=== PATIENT | female | born 1965 | race Caucasian/White ===

== ENCOUNTER → 2024-03-25 07:04 | Outpatient (CLI) | payer OTHER, SELFPAY ==
--- NOTE | 2024-03-25 | DI.MRI.S_ITS ---
PROCEDURE: MR LUMBAR SPINE WO CON INDICATIONS: SPONDYLOSIS W/O MYELOPATHY OR RADICULOPATHY TECHNIQUE: Noncontrast sagittal T1 spin echo and T2 fast echo, sagittal STIR, and T2 fast spin echo through the lumbar spine. In cases with scoliosis, additional coronal T2 fast spin echo may be performed. COMPARISON: None. FINDINGS: Image quality: Excellent. Alignment and Curvature: There is grade 1 anterolisthesis of in mm L5 on S1. Bone Marrow: Marrow is of normal overall signal. No acute vertebral body compression fractures. Spinal Cord: Conus medullaris terminates at the L1 level. Visualized cord demonstrates normal signal and size. Paraspinous Soft Tissues: No paravertebral masses. Discs: Udan-[id number]-rivygyyx desiccation at L5-S1. T12-L1: No disc bulge, spinal stenosis or foraminal narrowing. L1-L2: No disc bulge, spinal stenosis or foraminal narrowing. L2-L3: No disc bulge, spinal stenosis or foraminal narrowing. L3-L4: Trace disc bulge without spinal stenosis. Mild left minimal right foraminal narrowing with ligamentum flavum hypertrophy. L4-L5: Disc bulge without spinal stenosis. No foraminal narrowing. L5-S1: No disc bulge or spinal stenosis. Severe bilateral foraminal narrowing. No nerve root compression. Pars defect is present. IMPRESSION: Grade 1 anterolisthesis of L5-S1 with bilateral pars defect. Bilateral severe foraminal narrowing at L5-S1 secondary to anterolisthesis. Dictated by: Poonam Spivey M.D. on 03/26/2024 at 17:41 Approved by: Poonam Spivey M.D. on 03/26/2024 at 17:43
== END ==
PROVIDERS: Referring Provider Acupuncturist; Visit Provider Acupuncturist
DX: M47.816 Spondylosis without myelopathy or radiculopathy, lumbar region (principal); M43.17 Spondylolisthesis, lumbosacral region; M48.07 Spinal stenosis, lumbosacral region
CPT/HCPCS: 72148

== ENCOUNTER → 2024-08-01 18:09 | Outpatient (CLI) | payer OTHER, SELFPAY ==
--- NOTE | 2024-08-01 18:12 | DI.MRI.S_ITS ---
PROCEDURE: MR KNEE RT WO CON INDICATIONS: MEDIAL KNEE PAIN ACUTE ON CHRONIC/LIG INJURY? TECHNIQUE: Noncontrast sagittal PD fast spin echo and T2 fast spin echo with fat saturation, sagittal 3-D FLASH with fat saturation; coronal T1 spin echo and PD fast spin echo with fat saturation, and axial PD fast spin echo with fat saturation through the knee. COMPARISON: None. FINDINGS: Image quality: Inability to use a dedicated knee coil, with resulting decreased [id number] ratio. Diagnostic information is obtained. Anterior cruciate ligament: Intact. Posterior cruciate ligament: Intact. Medial collateral ligament: Intact. Lateral collateral ligament: Intact. Medial meniscus: Peripheral horizontal oblique tear at the body and likely the posterior horn of the medial meniscus extending to the outer third of the tibial articular surface. Lateral meniscus: Horizontal oblique tearing of the body of the lateral meniscus extending to the inner third of the tibial articular surface. Suspected oblique component extending to the femoral articular surface at the anterior horn. Medial and lateral tendons: The semimembranosus tendon insertions appear intact. Visualized portions of the pes anserinus tendons appear normal. The popliteus tendon is intact. Iliotibial band appears normal. Anterior structures: The quadriceps and patellar tendons appear intact. No patellar subluxation. No femoral trochlear dysplasia or ventral trochlear prominence. No edema in the infrapatellar fat pad. Bones: No bone marrow contusions or fractures. Medial femorotibial cartilage: Mild partial-thickness cartilage thinning without a focal defect.. Lateral femorotibial cartilage: Partial-thickness cartilage irregularity in the weight-bearing portion of the compartment. Patellofemoral cartilage: No focal cartilage defect. Soft tissues: Moderate joint effusion. Moderate medial popliteal cyst. The visualized musculature is normal in bulk. IMPRESSION: 1. Complex tearing of the lateral meniscus with a horizontal oblique components extending to the tibial articular surface at the meniscal body and the femoral articular surface at the anterior horn. 2. Peripheral horizontal oblique tear at the body and posterior horn of the medial meniscus extending to the outer third of the tibial articular surface. 3. Cruciate and collateral ligaments are intact. No acute trabecular bone injury. 4. Mild grade 2 chondromalacia in the medial and lateral femorotibial compartments. 5. Moderate joint effusion. Moderate medial popliteal cyst. Approved by: Maximino Dalton M.D. on 08/02/2024 at 8:42
== END ==
PROVIDERS: Referring Provider Nurse Practitioner Family; Visit Provider Nurse Practitioner Family
DX: M25.561 Pain in right knee (principal); S83.281A Other tear of lateral meniscus, current injury, right knee, initial encounter; S83.241A Other tear of medial meniscus, current injury, right knee, initial encounter; M94.261 Chondromalacia, right knee; M25.461 Effusion, right knee; M71.21 Synovial cyst of popliteal space [Baker], right knee
CPT/HCPCS: 73721